=== PATIENT | female | born 1980 | race Two or more races ===

== ENCOUNTER 2024-12-04 06:05 | Day surgery (SDC) | payer OTHER, SELFPAY ==
[2024-11-25 09:11] LABS: % Basophils 1.5 % (0-2); % Eosinophils 6.4 % (0-6); % Immature Granulocytes 0.3 % (0-0.5); % Lymphocytes 32.8 % (20.5-51.1); Absolute Basophils 0.1 10^3/uL (0-0.2); Absolute Eosinophils 0.5 10^3/uL (0-0.7); Absolute Lymphocytes 2.4 10^3/uL (1.2-3.4); Absolute Monocytes 0.7 10^3/uL (0.1-0.6); Absolute Neutrophils 3.6 10^3/uL (1.4-6.5); Hematocrit 36.1 % (37.0-47.0); Hemoglobin 12.1 g/dL (12.0-16.0); Mean Corp Hgb Conc. 33.5 g/dL (33.0-37.0); Mean Corpuscular Hgb 31.2 pg (27.0-31.0); Mean Platelet Volume 10.2 fL (7.4-10.4); Nucleated Red Blood Cells % 0 %; Platelet Count 301 10^3/uL (130-400); Red Blood Cell Count 3.88 10^6/uL (4.20-5.40); White Blood Cell Count 7.2 10^3/uL (4.8-10.8)
[2024-11-25 09:44] LABS: Blood Urea Nitrogen 16 mg/dl (7-17); Calcium 8.8 mg/dl (8.4-10.2); Carbon Dioxide 29 mmol/L (22-30); Chloride 101 mmol/L (98-107); Glucose 89 mg/dl (70-99); Potassium 3.8 mmol/L (3.5-5.1); Sodium 138 mmol/L (135-145); eGFR > 60.00
[2024-11-25 11:41] LABS: Beta HCG Quantitative < 2.39 mIU/ml
[2024-11-25 14:16] VITALS: BMI 31.9
[2024-12-04 07:07] VITALS: BMI 31.9
[2024-12-04 07:09] VITALS: BP 151/86
[2024-12-04] MEDS: NEURONTIN 300 MG PO (07:15)
[2024-12-04] MEDS: TYLENOL 1000 MG PO (07:15)
[2024-12-04] MEDS: NORMOSOL-R/PLASMALYTE-A 1000 IV (07:16)
--- NOTE | 2024-12-04 08:07 | W.IMMPOSTOP ---
Surgical Immed Post Op Note
-
Primary Surgeon: Jory Wing DO
Linotype Operator: RODERICK Soliz
Pre-op Diagnosis: Request for sterilization
Post-op Diagnosis: same
Procedure Performed: Laparoscopic bilateral salpingectomy
Anesthesia Type: general ET Dr. Cardozo
Specimen / Cultures: bilateral fallopian tubes
Estimated Blood Loss: 2ml
Complications: none
Operative Findings: Globular shaped but normal sized uterus, sounded to 8 cm. Normal appearing tubes and ovaries. Stage 1 uterine prolapse.
Counts correct times 2.
Stable to recovery.
[2024-12-04 08:20] VITALS: BP 118/67; BP 151/86
[2024-12-04 09:20] VITALS: BP 118/67
[2024-12-04 09:35] VITALS: BP 132/76
[2024-12-04 09:50] VITALS: BP 140/81
== END 2024-12-04 10:24 | disposition home or self-care (01) ==
LOC: SDS 06:05
PROVIDERS: ATTENDING PHYSICIAN Obstetrics & Gynecology; FAMILY PHYSICIAN Internal Medicine
DX: Z30.2 Encounter for sterilization (principal)
CPT/HCPCS: 58661; 88302; 36415; 80048; 84702; 85025; 86850; 86900; 86901; C1776